=== PATIENT | female | born 1960 | race African-American/Black ===

== ENCOUNTER → 2017-03-17 | Outpatient (CLI) | payer BC ==
[~2017-03-17] VITALS: Ht 177.8 cm; Wt 145.1 kg
[~2017-03-17] MED LIST: AMLO10TA80 PO; FUROSEMIDE 20MG/2ML VIAL IVP ONE; LABE100T PO; LEVO50TA8 PO; LOSA100T14 PO; TRIA1CAP6 PO
== END | disposition home or self-care (01) ==
LOC: NM 09:53
PROVIDERS: ATTEND Specialist
DX: N13.5 Crossing vessel and stricture of ureter without hydronephrosis (principal); N19 Unspecified kidney failure; Z96.0 Presence of urogenital implants
CPT/HCPCS: 78707; A9562; C1893; J1940